=== PATIENT | female | born 1975 | race Asian ===

== ENCOUNTER 2019-02-28 15:00 | Emergency (ER) | payer OTHER ==
[~2019-02-28] VITALS: Ht 152.4 cm; Wt 44.5 kg
[2019-02-28] MEDS ORDERED: TYLENOL325 MG PO (15:11)
[2019-02-28] MEDS ORDERED: CVS IBUPROFEN PO (15:11)
[2019-02-28 16:55] VITALS: BP 144/55; TEMP 98.1
== END 2019-02-28 16:59 | disposition home or self-care (01) ==
LOC: ED 15:00
PROC: 2W3DX1Z Immobilization of Left Lower Arm using Splint (ICD-10-PCS; principal; 2019-02-28)
DX: G56.02 Carpal tunnel syndrome, left upper limb (principal)
CPT/HCPCS: 96372; 99282; 99283; J1885